=== PATIENT | male | born 1985 ===

== ENCOUNTER 2017-06-21 10:29 | Emergency (ER) | payer BC ==
[~2017-06-21] VITALS: Ht 177.8 cm; Wt 122.5 kg
[2017-06-21] MEDS ORDERED: FLUO40CA8 PO (10:42)
[2017-06-21] MEDS ORDERED: IBUPROFEN 600 MG TABLET PO ONE (11:00)
[2017-06-21] MEDS ORDERED: HYDROCODONE/APAP 5-325MG TABLET PO ONE (11:00)
--- NOTE | 2017-06-21 11:04 | NUR ---
PT IS IN ROOM #2a. DR ALAN EVALUATED THE PT.
[2017-06-21] MEDS ORDERED: HYDROCODONE/APAP 5-325MG TABLET ONE (11:07)
[2017-06-21] MEDS ORDERED: IBUPROFEN 600 MG TABLET ONE (11:08)
--- NOTE | 2017-06-21 11:21 | NUR ---
PT WAS D/C TO HOME. D/C INSTRUCTIONS GIVEN TO THE PT.
[2017-06-21 11:23] VITALS: BP 136/79
== END 2017-06-21 11:24 | disposition home or self-care (01) ==
LOC: ER 10:29
DX: S62.521A Displaced fracture of distal phalanx of right thumb, initial encounter for closed fracture (principal); F12.10 Cannabis abuse, uncomplicated; Z88.1 Allergy status to other antibiotic agents; W01.0XXA Fall on same level from slipping, tripping and stumbling without subsequent striking against object, initial encounter; Y93.02 Activity, running; Y92.89 Other specified places as the place of occurrence of the external cause; Y99.8 Other external cause status
CPT/HCPCS: 73110; 73140; A4663

== ENCOUNTER 2018-05-22 17:28 | Emergency (ER) | payer BC ==
[~2018-05-22] VITALS: Ht 177.8 cm; Wt 122.5 kg
[~2018-05-22 17:28] MED LIST: FLUO40CA8 PO
[2018-05-22] MEDS ORDERED: HYDROMORPHONE 1 MG/1 ML DISP.SYRIN IV ONE ×2 (17:45→18:30)
[2018-05-22] MEDS ORDERED: KETOROLAC TROMETHAMINE 15 MG INJ IV ONE (17:45)
[2018-05-22] MEDS ORDERED: ONDANSETRON 4 MG/2 ML VIAL IV ONE (17:45)
[2018-05-22] MEDS ORDERED: IV NORMAL SALINE 1000 ML BAG IV ONE ×2 (17:45→19:15)
[2018-05-22] MEDS ORDERED: KETOROLAC TROMETHAMINE 15 MG INJ ONE (17:49)
[2018-05-22] MEDS ORDERED: HYDROMORPHONE 2 MG/1 ML DISP.SYRIN ONE ×2 (17:49→18:23)
[2018-05-22] MEDS ORDERED: ONDANSETRON 4 MG/2 ML VIAL ONE (17:50)
[2018-05-22 18:07] LABS: BILIRUBIN,DIRECT 0.2 mg/dL (0.0-0.2); BILIRUBIN,TOTAL 1.1 mg/dL (0.2-1.0); CREATININE 1.3 mg/dL (0.6-1.3); POTASSIUM 4.3 mmol/L (3.5-5.1); TOTAL PROTEIN, SERUM 7.8 g/dL (6.4-8.2)
[2018-05-22 18:12] LABS: BASOPHILS # (AUTO) 0.1 K/uL (0.0-8.0); BASOPHILS % (AUTO) 0.7 % (0.0-2.0); EOSINOPHILS # (AUTO) 0.1 K/uL (0.0-0.7); EOSINOPHILS % (AUTO) 0.9 % (0.0-7.0); HEMATOCRIT 43.7 % (36.7-47.1); HEMOGLOBIN 15.7 g/dL (12.5-16.3); LYMPHOCYTES # (AUTO) 3.3 K/uL (20.0-40.0); LYMPHOCYTES % (AUTO) 32.3 % (20.5-51.5); MEAN CORPUSCULAR HEMOGLOBIN 30.5 uug (23.8-33.4); MEAN CORPUSCULAR HGB CONC 36 g/dL (32.5-36.3); MEAN CORPUSCULAR VOLUME 84.9 fL (73.0-96.2); MONOCYTES # (AUTO) 0.9 K/uL (2.0-10.0); MONOCYTES % (AUTO) 8.5 % (0.0-11.0); NEUTROPHILS # (AUTO) 5.9 K/uL (1.8-8.9); NEUTROPHILS % (AUTO) 57.6 % (38.5-71.5); PLATELET COUNT (AUTO) 271 K/uL (152-348); RED BLOOD CELL COUNT(AUTO) 5.15 MIL/uL (4.06-5.63); WHITE BLOOD COUNT (AUTO) 10.2 K/uL (3.6-10.2)
--- NOTE | 2018-05-22 18:36 | NUR ---
Patient is resting comfortably on gurney with eyes closed, marked decreased pains expressed, pending urine specimen, blood results and disposition@this time
--- NOTE | 2018-05-22 19:11 | NUR ---
SBAR to EDGAR Ornelas
--- NOTE | 2018-05-22 20:30 | NUR ---
Patient discharged to home in stable conditon. Patient reported being without pain prior to discharge. Written and verbal after care instructions given. Patient verbalizes understanding of instructions. Patient's peripheral IV was removed. Patient able to ambulate unassisted with steady gait. Patient left with all personal belongings.
[2018-05-22 20:43] VITALS: BP 117/64
== END 2018-05-22 20:30 | disposition home or self-care (01) ==
LOC: ER 17:29
DX: N20.0 Calculus of kidney (principal); N13.30 Unspecified hydronephrosis; F12.10 Cannabis abuse, uncomplicated; Z88.0 Allergy status to penicillin; Z88.1 Allergy status to other antibiotic agents; Z88.6 Allergy status to analgesic agent; Z79.891 Long term (current) use of opiate analgesic
CPT/HCPCS: 36415; 74176; 80048; 80076; 83690; 85025; 96374; 96375; 96376; 99285; A4663; J1170 ×2; J1885; J2405; J7030